=== PATIENT | male | born 1970 | race Caucasian/White ===

== ENCOUNTER 2020-07-27 05:39 | Emergency (ER) | payer OTHER ==
[2020-07-27 06:27] LABS: BASO % 0.3 % (0.0-1.0); EOS # 0.1 10*3/uL (0.0-0.4); EOS % 0.6 % (1.0-4.0); HEMATOCRIT 52.3 % (42.0-52.0); LYMPH # 1.9 10*3/uL (1.3-4.4); LYMPH % 19.6 % (27.0-41.0); MEAN CELL VOLUME 86.2 fl (80.0-94.0); MEAN CORPUSCULAR HGB 28.3 pg (27.0-31.0); MEAN CORPUSCULAR HGB CONC 32.9 g/dl (33.0-37.0); MEAN PLATELET VOLUME 9.6 fl (9.6-12.3); MONO # 0.5 10*3/uL (0.1-1.0); MONO % 5.4 % (3.0-9.0); NEUT % 73.6 % (47.0-73.0); PLATELET COUNT AUTOMATED 219 10*3/uL (130-400); RED BLOOD COUNT 6.07 10*6/uL (4.50-5.90); RED CELL DISTRI WIDTH 13.2 % (0-14.5); WHITE BLOOD COUNT 9.6 10*3/uL (4.8-10.8)
[2020-07-27 06:58] LABS: ALBUMIN 3.4 gm/dl (3.1-4.5); CREATININE 1.53 mg/dL (0.70-1.30); POTASSIUM 4.2 mmol/L (3.5-5.1); TOTAL PROTEIN 7.1 gm/dL (6.4-8.2)
== END 2020-07-27 07:40 | disposition home or self-care (01) ==
LOC: ED 05:39
PROVIDERS: Internal Medicine
DX: R05 Cough (principal); Z20.822 Contact with and (suspected) exposure to COVID-19; R50.9 Fever, unspecified; R06.02 Shortness of breath; F17.200 Nicotine dependence, unspecified, uncomplicated; Z88.0 Allergy status to penicillin

== ENCOUNTER 2024-08-20 03:02 | Emergency (ER) | payer SELFPAY ==
[~2024-08-20] VITALS: Wt 119.4 kg
== END 2024-08-20 03:55 | disposition home or self-care (01) ==
LOC: ED 03:02
DX: T16.2XXA Foreign body in left ear, initial encounter (principal); Z88.0 Allergy status to penicillin; Z88.1 Allergy status to other antibiotic agents; Z88.8 Allergy status to other drugs, medicaments and biological substances; W44.F4XA Insect entering into or through a natural orifice, initial encounter; Y93.89 Activity, other specified; Y92.89 Other specified places as the place of occurrence of the external cause; Y99.8 Other external cause status